=== PATIENT | male | born 1990 | race Caucasian/White ===

== ENCOUNTER 2016-12-21 23:01 | Emergency (ER) | payer OTHER ==
[~2016-12-21] VITALS: Ht 180.3 cm; Wt 68.2 kg
[~2016-12-21 23:01] MED LIST: CYCL10TA9 PO
[2016-12-21 23:02] VITALS: BP 136/91; PULSE 95; RESP 18; O2SAT 100
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
[2016-12-21] MEDS ORDERED: Ondansetron 2 mg/mL 2 mL Inj IVPUSH PRN (23:15)
[2016-12-21 23:23] LABS: BASOPHILS % (AUTO) 0.3 % (0-3); EOSINOPHILS % (AUTO) 0.7 % (0-5); MONOCYTES % (AUTO) 5.5 % (4-12); Mean Corpuscular Hemoglobin 31.3 pg (27.0-35.0); Mean Corpuscular Volume 87.5 fL (81-100); NEUTROPHILS % (AUTO) 59.5 % (40-74); Platelet Count 285 bil/L (150-400)
[2016-12-21 23:39] LABS: INR 0.96 ratio
[2016-12-22] MEDS ORDERED: Sodium Chloride LOK Flush 10 mL Syringe IVFLUSH SCH (00:30)
[2016-12-22] MEDS ORDERED: fentaNYL-PF 50 mCg/mL 2 mL Inj IVPUSH PRN (00:55)
[2016-12-22] MEDS ORDERED: HYDROcodone-APAP 5-325 mg Tablet PO ONE (03:05)
[2016-12-22 03:59] VITALS: BP 139/74; PULSE 87; RESP 22; O2SAT 99
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
== END 2016-12-22 03:45 | disposition home or self-care (01) ==
LOC: SED 23:01
DX: S19.89XA Other specified injuries of other specified part of neck, initial encounter (principal); S09.8XXA Other specified injuries of head, initial encounter; S43.401A Unspecified sprain of right shoulder joint, initial encounter; V48.5XXA Car driver injured in noncollision transport accident in traffic accident, initial encounter; Y93.9 Activity, unspecified; Y92.410 Unspecified street and highway as the place of occurrence of the external cause; Y99.8 Other external cause status
CPT/HCPCS: 36415; 70450; 71010; 71260; 72125; 73030; 74177; 80053; 85025; 85610; 96374; 96375; 99285; G0480; J2405; J3010; Q9967

== ENCOUNTER 2016-12-22 16:39 | Emergency (ER) | payer OTHER ==
[~2016-12-22] VITALS: Ht 180.3 cm; Wt 65.9 kg
[2016-12-22 16:55] VITALS: BP 142/88; PULSE 103; RESP 16; O2SAT 99
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
[2016-12-22] MEDS ORDERED: oxyCODONE-Acetamin 5-325 mg Tablet PO ONE (18:30)
[2016-12-22 19:29] VITALS: BP 141/85; PULSE 80; RESP 16; O2SAT 80
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
== END 2016-12-22 19:29 ==
LOC: SED 16:39
DX: S43.421D Sprain of right rotator cuff capsule, subsequent encounter (principal); S49.81XD Other specified injuries of right shoulder and upper arm, subsequent encounter; V49.88XD Car occupant (driver) (passenger) injured in other specified transport accidents, subsequent encounter; Y93.89 Activity, other specified; Y92.9 Unspecified place or not applicable; Y99.8 Other external cause status
CPT/HCPCS: 71020; 71130; 73030; 96372; 99284; J1885